=== PATIENT | female | born 1960 | race Caucasian/White ===

== ENCOUNTER → 2019-12-22 | Outpatient (CLI) | payer OTHER ==
[~2019-12-22] MED LIST: ACTEMRA80 MG/4 ML; ADVAIRDISKUS; DIVIGEL0.25 MG TD; DOXYCYCLINE 10100 MG PO; EPIKLOR20 MEQ PO; HYDROCHLOROTHIA25 M1 PO; LORTABELXR PO; METHOTREXATE 22.5 MG GT; NORCO 5-325 TA1 EACH PO; PREVACID30 M1 PO; ZOFRAN ODT4 MG PO; ZPAK PO
== END ==
LOC: RAD 08:08
DX: M25.751 Osteophyte, right hip (principal)

== ENCOUNTER 2020-04-13 23:15 | Emergency (ER) | payer OTHER ==
[~2020-04-13] VITALS: Ht 167.6 cm; Wt 95.7 kg
[2020-04-13] MEDS ORDERED: LEXAPRO 10 MG T10 M2 PO (23:35)
[2020-04-13] MEDS ORDERED: CELEBREX50 MG PO (23:36)
[2020-04-14 00:25] LABS: ABSOLUTE NEUTROPHILS 2.9 thou/uL (1.4-8.2); BASOPHILS 1.4 % (0.0-2.0); EOSINOPHILS 3.6 % (0.0-3.0); HEMATOCRIT 44.5 % (37.0-47.0); HEMOGLOBIN 15.7 gm/dL (12.0-15.0); LYMPHOCYTES 26.5 % (24.0-44.0); MCH 32.8 pg (26.0-34.0); MCHC 35.3 g/dL (28.0-37.0); PLATELET COUNT 154 thou/uL (150-400); POLYS 59.5 % (36.0-66.0); RBC 4.79 mil/uL (4.20-5.00); RDW 12.3 % (10.5-14.5); WBC 4.9 thou/uL (4.0-11.0)
[2020-04-14 00:37] LABS: ANION GAP 11 mmol/L (7-16); BUN 29 mg/dL (7-18); CALCIUM 9.3 mg/dL (8.5-10.1); CHLORIDE 104 mmol/L (98-107); CO2 27 mmol/L (21-32); CREATININE 1.3 mg/dL (0.6-1.0); DIRECT BILIRUBIN < 0.1 mg/dL (<0.1-0.2); GLUCOSE 130 mg/dL (74-106); LIPASE 185 U/L (73-393); SGOT 22 U/L (15-37); SGPT 28 U/L (30-65); SODIUM 142 mmol/L (136-145); TOTAL BILIRUBIN 0.4 mg/dL (0.2-1.0); TOTAL PROTEIN 7.1 g/dL (6.4-8.2)
[2020-04-14] MEDS ORDERED: ZOFRAN ODT4 MG PO (02:23)
[2020-04-14 02:32] VITALS: BP 132/97
== END 2020-04-14 02:38 | disposition home or self-care (01) ==
LOC: ER 23:15
PROVIDERS: Emergency Medicine
DX: R11.10 Vomiting, unspecified (principal); E87.6 Hypokalemia; I10 Essential (primary) hypertension; J45.909 Unspecified asthma, uncomplicated; Z98.890 Other specified postprocedural states; Z79.899 Other long term (current) drug therapy; Z88.2 Allergy status to sulfonamides; Z90.710 Acquired absence of both cervix and uterus; Z90.49 Acquired absence of other specified parts of digestive tract

== ENCOUNTER 2020-05-11 23:01 | Emergency (ER) | payer OTHER ==
[~2020-05-11] VITALS: Ht 167.6 cm; Wt 95.3 kg
[~2020-05-11 23:01] MED LIST changes: +CELEBREX50 MG PO; +LEXAPRO 10 MG T10 M2 PO
[2020-05-12 00:03] LABS: ABSOLUTE NEUTROPHILS 3.9 thou/uL (1.4-8.2); BASOPHILS 1.1 % (0.0-2.0); EOSINOPHILS 2.7 % (0.0-3.0); HEMATOCRIT 46.2 % (37.0-47.0); HEMOGLOBIN 16.5 gm/dL (12.0-15.0); LYMPHOCYTES 22.7 % (24.0-44.0); MCH 32.6 pg (26.0-34.0); MCHC 35.7 g/dL (28.0-37.0); MCV 91.5 fL (80.0-100.0); MONOCYTES 8.4 % (1.0-8.0); PLATELET COUNT 175 thou/uL (150-400); POLYS 65.1 % (36.0-66.0); RBC 5.05 mil/uL (4.20-5.00); RDW 12.3 % (10.5-14.5); WBC 5.9 thou/uL (4.0-11.0)
[2020-05-12 00:06] LABS: URINE BILIRUBIN NEGATIVE (Negative); URINE BLOOD NEGATIVE (Negative); URINE CLARITY CLEAR; URINE COLOR YELLOW; URINE GLUCOSE-RANDOM* NEGATIVE (Negative); URINE KETONES TRACE (Negative); URINE NITRITE-REFLEX NEGATIVE (Negative); URINE PROTEIN (DIPSTICK) NEGATIVE (Negative); URINE SPECIFIC GRAVITY >= 1.030 (1.005-1.035); URINE UROBILINOGEN 0.2 E.U./dl (0.2-1.0)
[2020-05-12 00:11] LABS: URINE LEUKOCYTES-REFLEX 1+ (Negative)
[2020-05-12 00:16] LABS: CALCIUM 9.3 mg/dL (8.5-10.1); CREATININE 1.2 mg/dL (0.6-1.0)
[2020-05-12 00:19] LABS: ALBUMIN 3.8 g/dL (3.4-5.0); TOTAL BILIRUBIN 0.4 mg/dL (0.2-1.0)
[2020-05-12 00:30] LABS: CASTS None Seen /LPF (None Seen); MUCUS 0-3 Light strn/LPF (None Seen); SQUAMOUS >10 Many /LPF (0-3); URINE RBC 3-10 Few /HPF (0-2)
[2020-05-12 00:31] LABS: AMORPHOUS URATES Moderate /LPF (None Seen); CRYSTALS None Seen /LPF (None Seen)
[2020-05-12] MEDS ORDERED: ZOFRAN ODT4 MG PO (02:27)
[2020-05-12] MEDS ORDERED: KEFLEX500 M1 PO (02:27)
[2020-05-12 02:28] VITALS: BP 102/62
== END 2020-05-12 02:35 | disposition home or self-care (01) ==
LOC: ER 23:01
PROVIDERS: Emergency Medicine
DX: N39.0 Urinary tract infection, site not specified (principal); E87.6 Hypokalemia; R11.2 Nausea with vomiting, unspecified; I10 Essential (primary) hypertension; M06.9 Rheumatoid arthritis, unspecified; J45.909 Unspecified asthma, uncomplicated; Z90.710 Acquired absence of both cervix and uterus; Z90.49 Acquired absence of other specified parts of digestive tract; Z98.890 Other specified postprocedural states; Z79.899 Other long term (current) drug therapy; Z88.2 Allergy status to sulfonamides